=== PATIENT | female | born 1985 | race Two or more races ===

== ENCOUNTER 2021-08-17 13:46 | Emergency (ER) | payer OTHER ==
[2021-08-17 14:22] VITALS: BP 119/68; PULSE 84; TEMP 98.2; BMI 27.2
[2021-08-17] MEDS ORDERED: IBUPROFEN 400 MG TABLET (FP) PO ONE ×2 (14:35→14:37)
== END 2021-08-17 15:11 | disposition home or self-care (01) ==
LOC: JER 13:46
PROC: 0H9BXZZ Drainage of Right Upper Arm Skin, External Approach (ICD-10-PCS; principal; 2021-08-17)
DX: L02.411 Cutaneous abscess of right axilla (principal)
CPT/HCPCS: 99283-25

== ENCOUNTER 2021-08-19 10:11 | Emergency (ER) | payer OTHER ==
[2021-08-19 10:17] VITALS: BP 128/90; PULSE 73; TEMP 98.3; BMI 31.2
[2021-08-19] MEDS ORDERED: IBUPROFEN 400 MG TABLET (FP) PO ONE ×2 (10:42→11:01)
== END 2021-08-19 11:18 | disposition home or self-care (01) ==
LOC: JERFT 10:11
DX: S00.83XA Contusion of other part of head, initial encounter (principal); S40.011A Contusion of right shoulder, initial encounter; L02.411 Cutaneous abscess of right axilla; Y04.8XXA Assault by other bodily force, initial encounter; Z48.01 Encounter for change or removal of surgical wound dressing
CPT/HCPCS: 99283-25

== ENCOUNTER 2021-11-23 08:41 | Emergency (ER) | payer OTHER ==
[2021-11-23 08:52] VITALS: BP 107/63; PULSE 65; TEMP 97.8; BMI 30.2
[2021-11-23 10:03] LABS: EPI CELLS >36 /uL (0-25.1); HYALINE CASTS 0 /uL (0-3.1); URINE APPEARANCE CLEAR; URINE BACTERIA 1351 /uL (0-1359); URINE BILIRUBIN NEGATIVE (NEGATIVE); URINE COLOR YELLOW; URINE GLUCOSE (UA) NEGATIVE (NEGATIVE); URINE KETONE NEGATIVE (NEGATIVE); URINE LEUK ESTERASE NEGATIVE (NEGATIVE); URINE NITRITE NEGATIVE (NEGATIVE); URINE PROTEIN NEGATIVE (NEGATIVE); URINE RBC 1 /uL (0-23.9); URINE UROBILINOGEN 0.2 mg/dL (0.2-1.0)
[2021-11-23 11:02] LABS: HCG,QUALITATIVE URINE Negative
== END 2021-11-23 11:22 | disposition home or self-care (01) ==
LOC: JERFT 08:41 → JER 08:41 → JERFT 11:22
DX: N30.01 Acute cystitis with hematuria (principal)
CPT/HCPCS: 81003; 84703; 87086; 99283-25

== ENCOUNTER 2022-01-02 09:52 | Emergency (ER) | payer OTHER ==
[2022-01-02 09:59] VITALS: BP 140/83; PULSE 83; RESP 20; TEMP 98.1; BMI 30.2
[2022-01-02] MEDS ORDERED: IBUPROFEN 600 MG TABLET (FP) PO ONE ×2 (10:22→10:24)
[2022-01-02] MEDS ORDERED: DIPHTH,PERTUSS(ACELL),TET 0.5 ML DISP.SYRIN IM ONE ×2 (10:23→10:24)
== END 2022-01-02 11:15 | disposition home or self-care (01) ==
LOC: JERFT 09:52
PROC: 3E0234Z Introduction of Serum, Toxoid and Vaccine into Muscle, Percutaneous Approach (ICD-10-PCS; principal; 2022-01-02)
DX: S61.441A Puncture wound with foreign body of right hand, initial encounter (principal); R22.31 Localized swelling, mass and lump, right upper limb; W25.XXXA Contact with sharp glass, initial encounter
CPT/HCPCS: 73130-TC-RT-FY; 90471; 90715; 99284-25